=== PATIENT | female | born 1960 | race Caucasian/White ===

== ENCOUNTER 2017-03-18 06:16 | Inpatient (IN) ==
--- NOTE | 2017-03-15 22:50 | Discharge Summary ---
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 Qualifiers: Encounter type: subsequent encounter Qualified Code(s): T84.038D - Mechanical loosening of other internal prosthetic joint, subsequent encounter; Z96.659 - Presence of unspecified artificial knee joint (2) HLD (hyperlipidemia) Priority: Secondary Status: Chronic Qualifiers: Hyperlipidemia type: pure hypercholesterolemia Qualified Code(s): E78.00 - Pure hypercholesterolemia, unspecified; E78.0 - Pure hypercholesterolemia (3) Obesities, morbid Priority: Secondary Status: Chronic (4) Status post revision of total replacement of right knee Priority: Primary Status: Acute (5) HTN (hypertension) Priority: Secondary Status: Chronic Qualifiers: Hypertension type: essential hypertension Qualified Code(s): I10 - Essential (primary) hypertension - Discharge Medications Home Medications: Buspirone HCl [Buspar] 15 mg PO BID 10/15/15 [History] FLUoxetine HCl [Prozac] 40 mg PO DAILY 10/15/15 [History] Lisinopril [Zestril] 20 mg PO DAILY 10/15/15 [History] Aspirin Enteric Coated [Aspirin EC] 325 mg PO DAILY #21 tablet.dr 03/15/17 [Rx] OxyCODONE Immed Rel [Roxicodone 5 MG] 5 - 10 cap PO Q6HR PRN #40 tablet [Rx] Cholecalciferol (Vitamin D3) [Vitamin D3] 10,000 unit PO FR 03/18/17 [History] Fexofenadine HCl 60 mg PO BID 03/18/17 [History] hydrOXYzine pamoate [Hydroxyzine Pamoate] 25 mg PO Q8H PRN 03/18/17 [History] Allergies/Adverse Reactions: Allergies No Known Allergies Allergy (Verified 03/18/17 07:29) Primary care physician: Adilia Dolan, - Patient Status Disposition: Home Health Service Condition: Good - Discharge Instructions Follow Up With: Adilia Dolan, DIANA [Primary Care Provider] - Nuria Shannon PAC [Physician Logistics Specialist] - 03/26/17 1:30 pm Additional Instructions: Discharge Instructions: Total Knee Replacement Please call [facility] ([phone]), your Primary Care Physician, or report to the Emergency Room if you have any of the following symptoms: Nausea, vomiting, fever greater that 101.5, swelling, chest pain, shortness of breath, increased pain/redness/drainage/odor for your incision site, numbness/ tingling, or any other concerning symptoms. ACTIVITY:Weight-bearing as tolerated. You may progress off support (crutches or walker) as tolerated. MEDICATIONS: Upon discharge resume your home medications. Take all the medications as prescribed. Take a stool softener if taking narcotic pain medications. Stool softeners are only effective if you drink enough fluids. Drink 6-8 glass of water or fluids a day, unless this is not allowed for another health problem. Despite using stool softeners, if you haven't had a bowel movement in 3 days, please switch to a gentle laxative. Gentle laxatives are sold over the counter. You should have a bowel movement within 24 hours, if not call the office. You will be discharged from the hospital with a prescription for pain medication. You are encouraged to decrease the use of narcotic pain medication as tolerated. Should you require a refill, please call the office. [facility] prescribes narcotic pain medication for only 4-6 weeks after surgery. If you require pain medication beyond this time period, you may be referred to your Primary Care Physician or to the Pain Clinic for further evaluation. Plan ahead for refills on pain medication as many narcotics either need to be picked up at the office or mailed. It is best to call 48-72 hours in advance of needing a prescription refill so you don't run out of medication. To help control the post-operative pain, you may take NSAIDs (Aleve,Advil, Motrin, Ibuprofen, Naprosyn) or Tylenol as prescribed on the bottle in addition to the pain medication. ANTICOAGULATION (blood thinners): Continue your Aspirin, Lovenox or Coumadin as prescribed to help prevent a blood clot in the leg or in the lungs. As long as your incision remains dry and you tolerate the NSAIDs (Aleve, Advil, Motrin, ibuprofen, naprosyn), it is OK to use the NSAIDS while you are taking your anticoagulation medication. Should your incision start to drain, stop the NSAID and contact our office. Common symptoms of blood clot in the legs include: localized pain, swelling, calf tenderness, redness or discoloration of the skin. Blood clot in the lung symptoms include: shortness of breath, rapid pulse, sweating, and chest pain that worsens with deep breathing, coughing up blood, lightheadedness, feelings of anxiety. If you experience any of these symptoms notify your physician immediately, go to the emergency room, or if having trouble breathing, call 911. WOUND CARE: Leave the dressing on for 7 to 10days. You may change the dressing if it becomes saturated greater than 50%. Do not get the dressing wet at anytime. Wash your hands with antibacterial soap, rinse and dry prior to any wound care. If you have celestino the visiting nurse or rehab facility can remove the stapes 10-14 days after surgery and place steri-strips across the wound. Leave the steri-strips in place until they fall off on their won. You may let water from the shower run on top of the steri-strips. If you do not have a visiting nurse or rehab facility, you will need to return to the office at 10-14 days for the celestino to be removed. If you have itching or redness around the dressing call the office. FOLLOW-UP: Please follow up with your surgeon in the orthopedic clinic in 4 weeks from the day of surgery. If you have celestino that need to be removed, you will need to come back to the office in 10-14 days from the day of surgery. - Hospital Course Hospital course: Ms. 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 Qualifiers: Encounter type: subsequent encounter Qualified Code(s): T84.038D - Mechanical loosening of other internal prosthetic joint, subsequent encounter; Z96.659 - Presence of unspecified artificial knee joint (2) Status post revision of total replacement of right knee Priority: Primary Status: Acute (3) HTN (hypertension) Priority: Secondary Status: Chronic Qualifiers: Hypertension type: essential hypertension Qualified Code(s): I10 - Essential (primary) hypertension (4) HLD (hyperlipidemia) Priority: Secondary Status: Chronic Qualifiers: Hyperlipidemia type: pure hypercholesterolemia Qualified Code(s): E78.00 - Pure hypercholesterolemia, unspecified; E78.0 - Pure hypercholesterolemia (5) Obesities, morbid Priority: Secondary Status: Chronic - Patient Status Functional capacity at discharge: independent ambulation Overall status at discharge: patient is back to baseline - Hospital Course Hospital course: Ms. Patton is a 57 year old female - Time Spent with Patient Total time spent providing and/or coordinating discharge services:
[2017-03-18] MEDS ORDERED: CeFAZolin Pre 2,000 MG/100 ML 2,000 MG/100 ML BAG IVPB ONE (06:47)
--- NOTE | 2017-03-18 06:57 | Anesthesia Evaluation PreOp ---
Date of Encounter: 03/18/17 Time of Encounter: 06:55 - Past History Planned Operation: r revision tibia possible tka Cardiac History: HTN Pulmonary History: Denies Any Significant HX PUBLIC HEALTH ADMINISTRATOR History: Other (depression/anxiety) Other Medical History: Denies Any Significant HX Anesthesia History: No Prior Anesthetic Complications, Past Anesthesia (bilat tka,tonsils, d&c, revision r tka) Alcohol Use: none Drug use: none Medications and Allergies Buspirone HCl [Buspar] 15 mg PO BID 10/15/15 [History] FLUoxetine HCl [Prozac] 20 mg PO DAILY 10/15/15 [History] Gabapentin [Neurontin] 800 mg PO TID 10/15/15 [History] Lisinopril [Zestril] 20 mg PO DAILY 10/15/15 [History] Meloxicam [Mobic] 15 mg PO DAILY 10/15/15 [History] Tizanidine HCl 4 mg PO Q8H PRN 10/15/15 [History] Aspirin Enteric Coated [Aspirin EC] 325 mg PO DAILY #21 tablet. 03/15/17 [Rx] OxyCODONE Immed Rel [Roxicodone 5 MG] 5 - 10 cap PO Q6HR PRN #40 tablet [Rx] Allergies No Known Allergies Allergy (Verified 03/13/17 09:30) - Meds/Allergy Pre-op Review Medications Reviewed: Yes Allergies Reviewed: Yes Beta Blockers on Current Med List: No Anesthesia Results - Labs Laboratory Tests 01/29/17 03/13/17 03/13/17 08:02 09:45 09:45 Hgb 12.7 Hct 39.4 Plt Count 342 PT 10.8 INR 1.0 APTT 27.8 Sodium Potassium Creatinine 0.81 03/13/17 09:45 Hgb Hct Plt Count PT INR APTT Sodium 140 Potassium 4.5 Creatinine - Imaging EKG: report reviewed (nsr) Anesthesia Exam O2 Sat Height 1.65 m Height 1.65 m Height 1.65 m Weight 116.573 kg Weight 116.573 kg Weight 116.573 kg O2 Sat by Pulse Oximetry 96 Vital Signs Temp Pulse Resp BP Pulse Ox 98.4 F 94 18 128/74 96 03/18/17 06:31 03/18/17 06:31 03/18/17 06:31 03/18/17 06:31 03/18/17 06:31 Height: 1.65 Weight: 117 NPO (# of Hours): >8 - HEENT Pupil (Motor): Pupils equal, EOMI Mallampati: II Teeth: Poor dentition Oral Opening: Less than or equal to 3 (good underbite) - PUBLIC HEALTH ADMINISTRATOR LOC: Oriented PUBLIC HEALTH ADMINISTRATOR Motor: Normal RUE, Normal LUE, Normal RLE, Normal LLE, Normal Face PUBLIC HEALTH ADMINISTRATOR Sensory: Normal: RUE, LUE, RLE, LLE, Face - Cardiac Rhythm: Regular Murmur: None - Pulmonary Breath Sounds: bilateral Clear Respiratory Effort: Symmetrical Anesthesia Assess/Plan ASA Score: 3 Modified [place] Scale for Level of Consciousness: Cooperative, oriented, and tranquil Anesthetic Plan: General, Regional Monitoring Plan: Standard Monitors Recovery Plan: PACU
[2017-03-18] MEDS ORDERED: Ringers Solution, Lactated 1,000 ML IVC SCH ×2 (07:00→08:00)
[2017-03-18] MEDS ORDERED: *HR* Midazolam HCl 2 MG/2 ML VIAL ONE (07:04)
[2017-03-18] MEDS ORDERED: *HR* FentaNYL (PF) 100 MCG/2 ML VIAL ONE (07:04)
[2017-03-18] MEDS ORDERED: *HR* Propofol 200 MG/20 ML VIAL IVP ONE (07:04)
[2017-03-18] MEDS ORDERED: *HR* Phenylephrine 10 MG/ML VIAL ONE (07:05)
[2017-03-18] MEDS ORDERED: *HR* Rocuronium Bromide 50 MG/5 ML VIAL ONE (07:05)
[2017-03-18] MEDS ORDERED: Lidocaine -MPF 4% 5 ML AMPUL ONE (07:05)
[2017-03-18] MEDS ORDERED: Lidocaine -MPF 2% 2 ML VIAL ONE (07:05)
[2017-03-18] MEDS ORDERED: *HR* Succinylcholine 200 MG/10 ML VIAL IVP ONE (07:05)
[2017-03-18] MEDS ORDERED: CloNIDine Patch 0.1 MG PATCH (WEEKLY) TD ONE (07:15)
--- NOTE | 2017-03-18 07:24 | History & Physical Report ---
Date of Encounter: 03/18/17 Time of Encounter: 07:23 24 Hour HP Update - Instructions Instructions: If the History and Physical is less than 30 days old and was completed prior to A.M. admission and or procedure and has NOT been updated on calendar day of procedure please complete this update prior to performing procedure. - Update Patient reports changes in Medical Condition: No Changes in examination, assessment, or condition: No Changes in Medication: No Preop tests/diagnostics Reviewed: Yes Surgery Remains Indicated: Yes Consent for Planned Operative Procedure(s) Verified: Yes - Pre-Operative Checklist Preoperative Checklist Indicated: No Prophylactic Antibiotic Ordered: Yes Is VTE Prophylaxis Indicated?: Yes
[2017-03-18] MEDS ORDERED: Bupivacaine/Clonidine Syringe 1 EACH SYRINGE ONE (07:38)
[2017-03-18] MEDS ORDERED: Albuterol 2.5 MG/3 ML NEBULIZER IH ONE (07:58)
[2017-03-18] MEDS ORDERED: Ondansetron 4 MG/2 ML VIAL IVP ONE (07:58)
[2017-03-18] MEDS ORDERED: *HR* Meperidine 25 MG/ML SYRINGE IVP PRN (07:58)
[2017-03-18] MEDS ORDERED: Naloxone 0.4 MG/ML INJ IVP PRN ×2 (07:58→11:16)
[2017-03-18] MEDS ORDERED: *HR* Labetalol 20 MG/4 ML SYRINGE IVP PRN (07:58)
--- NOTE | 2017-03-18 08:23 | Anesthesia Procedures ---
Date of Encounter: 03/18/17 Time of Encounter: 08: Procedures: Anesthesia - Nerve Block Procedure Date: 03/18/17 Time: 08:21 Surgical Procedure: right tibial revision poss total revision knee Checklist: Correct Patient Identifier, Correct procedure, History checked Correct side: Right Blood Thinner: No Monitor Applied: EKG, BP, Pulse Oximetry Supplemental Oxygen via Nasal Cannula (L/min): 3 Sedation: Versed (mg): 2 Sedation: Fentanyl (mcg): 100 Indication: Post Op Analgesia (request per dr jose for post op pain control) Pre-op Neuro Deficits: No Block Type: Femoral, Other (ipack) Catheter placed: No Sterile Technique: Yes Ultrasound used: Yes Anatomy identified: Yes Visual spread of Local: Yes Neuro Stimulation: Yes Nerve Stimulator Range: >0.4 - 0.6 mA Blood on Needle Aspiration: No Smooth Injection of Local: Yes Pain with Injection of Local: No Prep: Chlorhexadine Needle: 22 x 50 mm Stimuplex Local: 0.25% Bupivicaine w/Clonidine 20 mcg/cc Volume (cc): 60 Number of Attempts: 1 Complications: None/effective block Vitals: Vital Signs/O2 Sat/Glucose, Most Current Temp Pulse Resp BP Pulse Ox 03/18/17 06:31 98.4 F 94 18 128/74 96 Comments: pt tolerated procedure well. no complications. vss.
[2017-03-18] MEDS ORDERED: Ondansetron 4 MG/2 ML VIAL ONE (09:09)
[2017-03-18] MEDS ORDERED: Dexamethasone 4 MG/ML VIAL ONE (09:09)
--- NOTE | 2017-03-18 09:47 | Orthopedic Operative Note ---
Date of procedure: 03/18/17 Pre-op diagnosis: Aseptic loosening right tibia Post-op diagnosis: same Procedure: Procedure: Right revision tibial component Estimated blood loss: 200 cc Hardware: Metal and polyethylene replacement Depuy: 2.5 revision tray, 13 x 30 cemented stem, 12.5 insert Exam Under anesthesia: Full flexion full extension well-healed incision no swelling or erythema no varus valgus instability Procedural Notes: Loosening of tibial component Operative procedure: The patient was brought to the operating room and placed on the operating room table. After general anesthesia was administered the operative knee was examined. Findings were noted in the exam under anesthesia. The operative extremity was prepped and draped in sterile surgical fashion. The patient received IV antibiotics prior to skin incision. A standard midline incision was made centered over the patella. The incision was made through the skin and subcutaneous tissue through the old incision. A medial parapatellar tendon approach was performed. Care was taken to preserve tissue along the medial aspect of the patella. And to protect the patella tendon. The deep MCL was released off the medial tibia. The infra patella fat pad was excised. Cultures were obtained as well as Gram stain. The knee was brought into flexion the tibial poly-was removed. With an osteotome and oscillating saw. The femur was well fixed. Attention was then turned to the tibial component. The tibial component was loose and removed with an osteotome without any bone loss. Tibia was recut just below the level of the cement mantle. The tibia was prepared first sized to a 2.5 and touched reamed for a 13 x 30 stem. Trial had good fit and fixation. Trial reduction revealed full extension and full flexion no varus valgus instability with an 12.5 constrained Ashleigh. Trial components removed knee sat for 2 minutes with a Betadine saline solution. It was irrigated out with pulse irrigation. Components were assembled on the back table. The tibia was cemented. The 12.5 constrained Ashleigh was seated. The knee had full flexion and full extension and excellent patella tracking no varus valgus instability. After the cement hardened the knee was irrigated out again. The knee was taken through a range of motion had excellent patella tracking. The knee was closed by the PA. The extensor mechanism was closed with a running #2 Fiberwire suture and a running #2 PDS suture. The deep tissue was irrigated and closed deep with #1 PDS suture superficially with 0 PDS suture. The skin was closed with Dermabond and skin celestino. The patient was placed in a sterile dressing and postoperative brace. They were extubated and transferred to recovery room in stable condition. Anesthesia: SANCHO Surgeon: Dick Bowers Electronic Health Records Specialist: Nuria Shannon Condition: stable Disposition: PACU
[2017-03-18] MEDS: *HR* HYDROmorphone (PF) 1 MG/ML SYRINGE IVP PRN ×4 (10:20→23:51)
--- NOTE | 2017-03-18 10:58 | Anesthesia Evaluation Post Op ---
Date of Encounter: 03/18/17 Time of Encounter: 10:58 - Vital Signs Vital Signs: Vital Signs/O2 Sat/Glucose, Most Current Temp Pulse Resp BP Pulse Ox 03/18/17 10:38 101 17 116/66 99 03/18/17 10:28 97 20 120/70 97 03/18/17 10:18 97.9 F 105 20 120/70 92 03/18/17 08:22 94 16 107/67 98 03/18/17 08:06 83 16 103/81 98 - Lungs Lungs: Clear Ascult./Percussion - Airway Airway: Non-obstructed - Cardiovascular Regular Rate - Mental Status Mental Status: Alert & Oriented, Answers Appropriately - Pain Pain Scale: 4 - Nausea Vomiting Nausea Vomiting: Not Present - Hydration Hydration: Ice chips - Discharge PostOp Status: Transfer Patient to floor
[2017-03-18] MEDS ORDERED: Ketorolac 30 MG/ML VIAL IVP ONE (11:02)
[2017-03-18 11:04] LABS: Hemoglobin 11.5 g/dL (11.5-15.4)
[2017-03-18] MEDS ORDERED: MOM Conc 10 ML UD.LIQ PO PRN (11:16)
[2017-03-18] MEDS ORDERED: hydrOXYzine pamoate 25 MG CAPSULE PO PRN (11:16)
[2017-03-18] MEDS ORDERED: Sennosides 8.6 MG TABLET PO PRN (11:16)
[2017-03-18] MEDS ORDERED: *HR* OxyCODONE Immed Rel 5 MG TABLET PO PRN (11:16)
[2017-03-18] MEDS ORDERED: Temazepam 15 MG CAPSULE PO PRN (11:16)
[2017-03-18] MEDS ORDERED: Ondansetron 4 MG/2 ML VIAL IVP PRN (11:16)
[2017-03-18] MEDS: Lisinopril 20 MG TABLET PO SCH (11:58)
[2017-03-18] MEDS: Loratadine 10 MG TABLET PO SCH ×2 (11:58→21:04)
[2017-03-18] MEDS: FLUoxetine 20 MG CAPSULE PO SCH (11:58)
[2017-03-18] MEDS: Ringers Solution, Lactated 1,000 ML IVC SCH (12:00)
[2017-03-18] MEDS: *HR* OxyCODONE Immed Rel 5 MG TABLET PO PRN ×3 (12:48→21:04)
[2017-03-18] MEDS: *HR* Enoxaparin 30 MG/0.3 ML SYRINGE SQ SCH (17:09)
[2017-03-18] MEDS: ceFAZolin 2,000 MG in D5% in Water 100 ML IVPB SCH ×2 (17:10→23:51)
[2017-03-18] MEDS ORDERED: *HR* Enoxaparin 30 MG/0.3 ML SYRINGE SQ SCH ×2 (18:00)
[2017-03-19] MEDS: Ringers Solution, Lactated 1,000 ML IVC SCH (00:07)
[2017-03-19] MEDS: *HR* HYDROmorphone (PF) 1 MG/ML SYRINGE IVP PRN (03:35)
[2017-03-19] MEDS: *HR* Enoxaparin 30 MG/0.3 ML SYRINGE SQ SCH (06:23)
[2017-03-19] MEDS: *HR* OxyCODONE Immed Rel 5 MG TABLET PO PRN ×2 (06:27→10:44)
[2017-03-19 06:48] LABS: BUN/Creatinine Ratio 20 (6-26); Blood Urea Nitrogen 15 mg/dL (7-20); Calcium 8.6 mg/dL (8.6-10.8); Carbon Dioxide 26 mEq/L (19-29); Chloride 100 mEq/L (98-109); Glucose 124 mg/dL (70-99); Osmolality,Calculated 278 (280-300); Potassium 4.8 mEq/L (3.5-4.5); Sodium 133 mEq/L (136-145); eGFR For African Americans > 60 (> 60); eGFR For Non-African Americans > 60 (> 60)
[2017-03-19 06:58] LABS: Hematocrit 32.4 % (35.3-44.9); Hemoglobin 10.4 g/dL (11.5-15.4)
[2017-03-19 07:06] VITALS: BP 114/78
[2017-03-19] MEDS: Loratadine 10 MG TABLET PO SCH (07:31)
[2017-03-19] MEDS: Lisinopril 20 MG TABLET PO SCH (07:32)
[2017-03-19] MEDS: FLUoxetine 20 MG CAPSULE PO SCH (07:32)
[2017-03-19] MEDS ORDERED: Cholecalciferol (D-3) 1,000 UNIT TABLET PO SCH (09:00)
--- NOTE | 2017-03-20 12:02 | Physician Discharge Referral ---
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 For more information, call the [place] Tobacco Quit Line at 3-135-TEJM-NOW. - Dressing/Wound Care Type of Dressing/Treatments w/Frequency: Opsite dressing, leave intact until first post-operative visit. If dressing becomes >50% saturated, contact office, remove dressing and place appropriate dressing in its place. Do not allow for dressing to get wet. Oswaldo in place, plan to remove at post-operative day #14-16. Total Joint Precautions x 6 weeks Apply cold therapy wrap 3-6x/day for 20 minutes at a time. Encourage ambulation throughout the day Use Incentive spirometer 10x/hour. Elevate affected extremity above heart as tolerated. Brace: Wear knee immobilizer at night x 2 weeks. - Diet/Nutrition Diet/Nutrition Orders: Regular - Activity Activity Orders: Up ad lea, Ambulate - Services Needed Following services are medically necessary services: Nursing, Physical Therapy, Occupational Therapy - Transfer Medications Home Medications: Buspirone HCl [Buspar] 15 mg PO BID 10/15/15 [History] FLUoxetine HCl [Prozac] 40 mg PO DAILY 10/15/15 [History] Lisinopril [Zestril] 20 mg PO DAILY 10/15/15 [History] Aspirin Enteric Coated [Aspirin EC] 325 mg PO DAILY #21 tablet. 03/15/17 [Rx] OxyCODONE Immed Rel [Roxicodone 5 MG] 5 - 10 cap PO Q6HR PRN #40 tablet [Rx] Cholecalciferol (Vitamin D3) [Vitamin D3] 10,000 unit PO FR 03/18/17 [History] Fexofenadine HCl 60 mg PO BID 03/18/17 [History] hydrOXYzine pamoate [Hydroxyzine Pamoate] 25 mg PO Q8H PRN 03/18/17 [History] Allergies/Adverse Reactions: Allergies No Known Allergies Allergy (Verified 03/18/17 07:29) Certification: Further, I certify that my clinical findings support that this patient is homebound (i.e. absences from home require considerable and taxing effort and are for medical reasons or yarsanism services or infrequently or short duration when for other reasons) because: Homebound Reason: Post-surgery restriction and or conditions limit ability to leave home Attestation: My signature below is to certify that this patient is under my care and that I, or nurse practitioner, or a physician's assistant professor sculpture working with me, has a face-to -face encounter with this patient.
== END 2017-03-19 11:14 | disposition home health service (06) | DRG 302 ==
LOC: SAMDAY 06:16 → 3NENU 11:10
PROVIDERS: ADMIT Orthopaedic Surgery; ATTEND Orthopaedic Surgery